=== PATIENT | female | born 1980 | race American Indian/Alaskan Native ===

== ENCOUNTER 2019-08-14 08:38 | Day surgery (SDC) | payer MEDICAID ==
--- NOTE | 2019-08-12 14:27 | History and Physical Report ---
History of Present Illness Date of examination: 08/12/19 History of present illness: Patient has been reassessed/reevaluated. H&P has been reviewed. No interval changes. This is a 39 years old female with missed abotion diagnosed Medical and surgical treatment options discussed . All risk/benefits/alternatives were d/w pt and questions were addressed and answered. She desires to have D&C. Patient Profile: 39 Years Old Female LMP: 04/30/2019 Height: 69 inches (175.26 cm) Weight: 292 pounds BMI: 43.12 Menstrual History: LMP (date): 04/30/2019 Current Method of Contraception: None Date of Last Pap Smear: 06/2019 Past History : 7 Term Births: 4 Premature Births: 0 Living Children: 4 Para: 4 Mult. Births: 0 Prev : 0 Prev. attempt? 0 Aborta: 2 Elect. Ab: 1 Spont. Ab: 1 Ectopics: 0 # 1 Delivery date: 1995 Weeks Gestation: 12 Delivery type: EAB # 2 Delivery date: 01/30/2003 Weeks Gestation: 39 labor: no Delivery type: Hours of labor: 12 Anesthesia type: epidural Delivery location: [facility] Sex: Female weight: 7-14 Name: Michelle # 3 Delivery date: 11/28/2005 Weeks Gestation: 39 labor: no Delivery type: Hours of labor: 8 Anesthesia type: epidural Delivery location: [facility] Sex: Female weight: 7-14 Name: Heide Comments: Elevated BP # 4 Delivery date: 05/03/2009 Weeks Gestation: 40 labor: no Delivery type: Hours of labor: 8 Anesthesia type: epidural Delivery location: [facility] [place] Sex: Female weight: 8-6 Name: Chintan # 5 Delivery date: 08/18/2015 Weeks Gestation: 38 Delivery type: Vaginal Anesthesia type: epidural Delivery location: [facility] Sex: female weight: 7.13 Comments: gestational hypertension # 6 Delivery date: 2016 Weeks Gestation: 6-8 Delivery type: SAB 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 of genital herpes: no Partner hx. of genital herpes: no Hx of STD: trich 2003 Current Allergies (reviewed today): * LATEX (Critical) Past Medical History: Hypertension dx 2003, Past Surgical History: Appendectomy (2005) Cholecystectomy (2005) D&C: (1995) D&C: (2007) for menorhagia Family History Summary: Daughter (jc.) - Has Family History of Coronary Heart Disease - Please disregard relationships chosen - Entered On: 04/14/2015 Daughter (jc.) - Has Family History of Diabetes - Please disregard rel ationships chosen - Entered On: 04/14/2015 Daughter (jc.) - Has Family History of Hypertension - Please disregard relationships chosen - Entered On: 04/14/2015 Daughter (jc.) - Has No Family History of Breast Cancer - Please disregard relationships chosen - Entered On: 04/14/2015 Daughter (jc.) - Has No Family History of Colon Cancer - Please disregard relationships chosen - Entered On: 04/14/2015 Daughter (jc.) - Has No Family History of Ovarvian Cancer - Please disregard relationships chosen - Entered On: 04/14/2015 Social History: Patient is Risk Factors: Smoked Tobacco Use: Never smoker Smokeless Tobacco Use: Never Passive smoke exposure: no Drug use: no HIV high-risk behavior: no Alcohol use: no Exercise: yes Times per week: 5 Seatbelt use: 100 % Dietary Counseling: pn yes PAP Smear History: Date of Last PAP Smear: 08/12/2019 Results: 06/2019 Review of Systems General Denies fever, chills, sweats, anorexia, fatigue, weakness, malaise, weight loss and sleep disorder. Denies vaginal discharge, incontinence, dysuria, hematuria, urinary frequency, amenorrhea, menorrhagia, abnormal vaginal bleeding, pelvic pain, genital sores, decreased libido, painful periods, painful sex, urinary urgency, hot flashes, vaginal dryness, vaginal itching and vaginal odor. CV Denies chest pains, palpitations, syncope, dyspnea on exertion, orthopnea, PND and peripheral edema. Resp Denies cough, dyspnea at rest, excessive sputum, hemoptysis, wheezing and pleurisy. GI Complains of nausea. Denies vomiting, diarrhea, constipation, change in bowel habits, abdominal pain, melena, hematochezia, jaundice, gas/bloating, indigestion/heartburn, dysphagia and odynophagia. Breast Denies left breast lump, right breast lump, nipple discharge, bloody discharge from nipple, breast pain, abnormal mammogram and breast enlargement. Past History Past Medical History: hypertension, other (SEE HPI) Past Surgical History: Other (SEE HPI) Social history: full code, other (SEE HPI) Family history: other (SEE HPI) Medications and Allergies Allergies Allergy/AdvReac Type Severity Reaction Status Date / Time latex Allergy Rash Verified 08/13/19 13:39 Home Medications Medication Instructions Recorded Confirmed Last Taken Type Labetalol [Labetalol 200mg TAB] 200 mg PO BID #60 tablet 08/20/15 08/13/19 Unknown Rx Vit-Fe Fumar-FA [ 1 tab PO QDAY 08/13/19 08/13/19 Unknown History Vitamin] Review of Systems Constitutional: other (SEE HPI) Exam - Physical Exam Narrative exam: HEENT: normocephalic, no lesions or deformities Skin no significant abnormal lesions or rashes Chest: respiratory effort normal, clear to auscultation CV: regular, normal S1-S2, no murmur, no rub, no gallop Abdomen: normal bowel sounds, soft, nontender, no HSM Musculoskeletal: grossly normal ROM in joints, no joint tenderness or muscle weakness Neuro: no gross anomalities Extremities: no clubbing, cyanosis, or 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 Patient desires D&C Discussed risk of surgery including infection, bleeding and risk of perforating her uterus. Questions answered. Patient understands and desires to proceed (2) Hypertension Current Visit: No Status: Chronic Qualifiers: Hypertension type: essential hypertension Qualified Code(s): I10 - Essential (primary) hypertension (3) Rh negative status during in first trimester Current Visit: No Status: Acute Plan to address problem: Will require Rhogam after her procedure (4) BMI 40.0-44.9, adult Current Visit: No Status: Acute
[2019-08-14] MEDS ORDERED: LACTATED RINGERS 1,000 ML IV SCH (09:02)
[2019-08-14] MEDS ORDERED: DIPRIVAN 10 MG/ML IV ONE (09:25)
[2019-08-14] MEDS ORDERED: VERSED ONE (09:25)
[2019-08-14] MEDS ORDERED: SUBLIMAZE ONE ×2 (09:25→12:10)
[2019-08-14] MEDS ORDERED: METHERGINE IM ONE ×2 (09:30→10:28)
[2019-08-14] MEDS ORDERED: SILVER NITRATE TP ONE (09:30)
[2019-08-14 09:46] LABS: Basophils # (Auto) 0.2 K/mm3 (0.0-0.1); Basophils % (Auto) 1.4 % (0.0-1.8); Eosinophils # (Auto) 0.1 K/mm3 (0.0-0.4); Eosinophils % (Auto) 1.1 % (0.0-4.3); Hemoglobin 12.8 gm/dl (10.1-14.3); Lymphocytes # (Auto) 3.5 K/mm3 (1.2-5.4); Lymphocytes % (Auto) 27.2 % (13.4-35.0); Mean Corpuscular HGB Conc 33 % (30-34); Mean Corpuscular Volume 79 fl (79-97); Monocytes # (Auto) 0.5 K/mm3 (0.0-0.8); Monocytes % (Auto) 3.9 % (0.0-7.3); Red Blood Count 4.95 M/mm3 (3.65-5.03)
[2019-08-14] MEDS ORDERED: XYLOCAINE MPF 2% ONE (09:47)
--- NOTE | 2019-08-14 09:51 | Anesthesia Consultation ---
Anesthesia Consult and Med Hx Date of service: 08/14/19 - Airway Anesthetic Teeth Evaluation: Good ROM Head & Neck: Adequate Mental/Hyoid Distance: Adequate Mallampati Class: Class II Intubation Access Assessment: Good - Pulmonary Exam CTA: Yes - Cardiac Exam Cardiac Exam: RRR - Pre-Operative Health Status ASA Pre-Surgery Classification: ASA3 Proposed Anesthetic Plan: General - Pulmonary Hx Asthma: No COPD: No Hx Pneumonia: No - Cardiovascular System Hx Hypertension: Yes (since 2002) - Central Nervous System Hx Seizures: No Hx Back Pain: Yes (Lower back) Hx Psychiatric Problems: No - Endocrine Hx Renal Disease: No Hx End Stage Renal Disease: No Hx Hypothyroidism: No Hx Hyperthyroidism: No - Hematic Hx Anemia: No Hx Sickle Cell Disease: No - Other Systems Hx Alcohol Use: No Hx Cancer: No Hx Obesity: Yes (morbid)
--- NOTE | 2019-08-14 09:52 | Anesthesia Day of Surgery ---
Anesthesia Day of Surgery - Day of Surgery Patient Examined: Yes Patient H&P Reviewed: Yes Patient is NPO: Yes
[2019-08-14] MEDS ORDERED: DECADRON ONE (10:22)
[2019-08-14] MEDS ORDERED: ZOFRAN ONE (10:22)
--- NOTE | 2019-08-14 10:51 | Short Stay Summary ---
Short Stay Documentation Date of service: 08/14/19 - History Past Medical History: hypertension, other (SEE HPI) Past Surgical History: Other (SEE HPI) Social history: full code, other (SEE HPI) - Allergies and Medications Current Medications: Allergies latex Allergy (Verified 08/13/19 13:39) Rash Home Medications Medication Instructions Recorded Confirmed Last Taken Type RX: Labetalol [Labetalol 200mg TAB] 200 mg PO BID #60 tablet 08/20/15 08/13/19 08/14/19 04:00 Rx Vit-Fe Fumar-FA [ 1 tab PO QDAY 08/13/19 08/13/19 08/13/19 18:00 History Vitamin] Acetaminophen/Codeine [Tylenol #3] 1 tab PO Q4HR PRN #10 tablet 08/14/19 Unknown Rx Methylergonovine [Methergine] 0.2 mg PO Q8HR #7 tablet 08/14/19 Unknown Rx RX: DOXYCYCLINE Hyclate 100 mg PO Q12HR #14 capsule 08/14/19 Unknown Rx [Vibramycin CAP] RX: Ferrous Sulfate [Feosol 325 MG 325 mg PO BID #60 tablet 08/14/19 Unknown Rx tab] RX: Ibuprofen [Motrin 800 MG tab] 800 mg PO Q6H PRN #30 tablet 08/14/19 Unknown Rx Active Medications Lactated Ringer's (Lactated Ringers) 1,000 mls @ 100 mls/hr IV DIRECT SAMIRA Last Admin: 08/14/19 09:50 Dose: 100 mls/hr Documented by: - Physical exam General appearance: no acute distress HEENT: Atraumatic - Brief post op/procedure progress note Date of procedure: 08/14/19 (see dictated operative note) - Hospital course Hospital course: Patient was admitted underwent the above him procedure without any complications. Patient to receive RhoGAM postoperatively. Patient will be discharged with follow-up in office in 1-2 weeks for postop check. - Disposition Condition at discharge: Good Disposition: [id number] TO HOME OR SELFCARE - Discharge Diagnoses (1) Missed with demise before 20 completed weeks of gestation Status: Acute (2) Hypertension Status: Chronic Qualifiers: Hypertension type: essential hypertension Qualified Code(s): I10 - Essential (primary) hypertension (3) Rh negative status during in first trimester Status: Acute Comment: Patient to receive receive RhoGAM in recover room (4) BMI 40.0-44.9, adult Status: Acute Short Stay Discharge Plan Activity: advance as tolerated Diet: regular Follow up with: PRIMARY CARE,MD [Primary Care Provider] - 7 Days Prescriptions: RX: Ferrous Sulfate [Feosol 325 MG tab] 325 mg PO BID #60 tablet Methylergonovine [Methergine] 0.2 mg PO Q8HR #7 tablet RX: Ibuprofen [Motrin 800 MG tab] 800 mg PO Q6H PRN #30 tablet PRN Reason: Pain Acetaminophen/Codeine [Tylenol #3] 1 tab PO Q4HR PRN #10 tablet PRN Reason: Pain RX: DOXYCYCLINE Hyclate [Vibramycin CAP] 100 mg PO Q12HR #14 capsule
[2019-08-14 10:53] LABS: Platelet Count 206 K/mm3 (140-440)
--- NOTE | 2019-08-14 11:00 | Operative Report ---
Operative Report Operative Report: Date of procedure: Pre-operative diagnosis: Missed Post-operative diagnosis: Same Procedure name(s): Suction dilatation and curettage Surgeon: Alonso Pastor MD Educational Advisor: [] Anesthesia: General EBL: 50 mL Complications: None Findings: A large amount of tissue consistent with products of conception Specimen(s): Uterine contents Procedure: The patient was brought operating room where general anesthesia was induced without difficulty. Patient was placed in dorsal lithotomy position prepped and draped in the usual sterile manner. Rubber catheter was used to empty her bladder. Speculum placed in the vagina. Tenaculum was placed at 12:00. The cervix was dilated progressively with Hegar dilators. A 10 mm suction catheter was placed through the cervical os. Several passes of the suction catheter removed the uterine contents. General curettage was done with a banjo curettte. On until a gritty sensation was felt throughout the uterine cavity. Further suction with the suction curettage revealed no further products. All instruments were removed patient was hemostatic. She was awakened in the operating room and accompanied to recovery room in good condition.
[2019-08-14] MEDS ORDERED: TYLENOL #3 PO ONE (11:20)
[2019-08-14] MEDS ORDERED: SUBLIMAZE IV PRN (12:10)
--- NOTE | 2019-08-14 12:57 | Post Anesthesia Evaluation ---
- Post Anesthesia Evaluation Patient Participated: Yes Airway Patent: Yes Stable Respiratory Function: Yes Nausea/Vomiting: No Temp > 96.8F: Yes Pain Manageable: Yes Adequeate Hydration: Yes Anesthesia Complications: No Other Comments: Passes large clot in toilet. Surgeon advised and examined. OK for d/c.
[2019-08-14 17:44] VITALS: BP 168/75
== END 2019-08-14 08:39 | disposition home or self-care (01) ==
LOC: OR 08:38
PROVIDERS: ATTEND Obstetrics & Gynecology
DX: O02.1 Missed abortion (principal); I10 Essential (primary) hypertension; E66.9 Obesity, unspecified; M19.90 Unspecified osteoarthritis, unspecified site; Z79.899 Other long term (current) drug therapy; Z91.040 Latex allergy status; Z90.49 Acquired absence of other specified parts of digestive tract; Z68.41 Body mass index [BMI] 40.0-44.9, adult; Z98.890 Other specified postprocedural states; Z83.3 Family history of diabetes mellitus; Z82.49 Family history of ischemic heart disease and other diseases of the circulatory system
CPT/HCPCS: 36415; 59820; 85025; 86850; 86900; 86901; 88305; J1100; J2210; J2250; J2405; J2704; J2790; J3010; J7120